=== PATIENT | female | born 2005 | race Two or more races ===

== ENCOUNTER 2025-01-10 11:55 | Outpatient (CLI) | payer OTHER | END 2025-01-10 11:58 | disposition home or self-care (01) | LOC: PRENATAL 11:55 | PROVIDERS: ATTEND Obstetrics & Gynecology Maternal & Fetal Medicine | DX: O36.80X0 Pregnancy with inconclusive fetal viability, not applicable or unspecified (principal); O26.859 Spotting complicating pregnancy, unspecified trimester; Z3A.09 9 weeks gestation of pregnancy ==

== ENCOUNTER 2025-02-07 19:26 | Emergency (ER) | payer OTHER ==
[~2025-02-07] VITALS: Ht 152.4 cm; Wt 52.2 kg
[2025-02-07] MEDS ORDERED: PRENATA CHEWAB1 EACH (19:43)
[2025-02-07] MEDS ORDERED: FOLIC ACID20 MG (19:43)
[2025-02-07] MEDS ORDERED: CEPHALEXIN500 MG PO (21:08)
== END 2025-02-07 21:18 | disposition home or self-care (01) ==
LOC: ER 19:26
DX: O99.711 Diseases of the skin and subcutaneous tissue complicating pregnancy, first trimester (principal); Z3A.13 13 weeks gestation of pregnancy; L02.415 Cutaneous abscess of right lower limb

== ENCOUNTER → 2025-02-15 15:12 | Outpatient (CLI) | payer OTHER ==
[~2025-02-15 15:12] MED LIST: CEPHALEXIN500 MG PO; FOLIC ACID20 MG; PRENATA CHEWAB1 EACH
== END | disposition home or self-care (01) ==
LOC: PRENATAL 15:12
DX: O36.80X0 Pregnancy with inconclusive fetal viability, not applicable or unspecified (principal); Z36.82 Encounter for antenatal screening for nuchal translucency; Z14.8 Genetic carrier of other disease; Z3A.14 14 weeks gestation of pregnancy

== ENCOUNTER 2025-03-24 08:07 | Outpatient (CLI) | payer OTHER | END 2025-03-24 08:08 | disposition home or self-care (01) | LOC: PRENATAL 08:07 | PROVIDERS: ATTEND Obstetrics & Gynecology Maternal & Fetal Medicine | DX: O44.00 Complete placenta previa NOS or without hemorrhage, unspecified trimester (principal); Z3A.20 20 weeks gestation of pregnancy ==

== ENCOUNTER → 2025-05-23 10:44 | Outpatient (CLI) | payer OTHER | END | disposition home or self-care (01) | LOC: PRENATAL 10:44 | PROVIDERS: ATTEND Obstetrics & Gynecology Maternal & Fetal Medicine | DX: O26.849 Uterine size-date discrepancy, unspecified trimester (principal); Z3A.29 29 weeks gestation of pregnancy ==

== ENCOUNTER → 2025-07-03 07:35 | Outpatient (CLI) | payer OTHER | END | disposition home or self-care (01) | LOC: PRENATAL 07:35 | PROVIDERS: ATTEND Obstetrics & Gynecology Maternal & Fetal Medicine | DX: O26.843 Uterine size-date discrepancy, third trimester (principal); O36.8130 Decreased fetal movements, third trimester, not applicable or unspecified; Z3A.34 34 weeks gestation of pregnancy ==